=== PATIENT | male | born 1940 | race Caucasian/White ===

== ENCOUNTER → 2017-07-13 12:31 | Outpatient (CLI) | payer MEDICARE, SELFPAY ==
--- NOTE | 2017-07-13 12:35 | CDU_ITS ---
Reason For Study: carotid stenosis Rt. Velocities/BP Lt. Velocities/BP Prox CCA 59.2/14.1 cm/sec. Prox CCA 93.5/16.5 cm/sec. Mid CCA 34.6/9.82 cm/sec. Mid CCA 56.9/11.1 cm/sec. Dist CCA 45.2/11.8 cm/sec. Dist CCA 48.7/9.38 cm/sec. Prox ICA 86.4/18.1 cm/sec. Prox ECA 225/19.6 cm/sec. Mid ICA 85.6/18.9 cm/sec. Lt. Vert. 43.6/12.6 cm/sec. Dist ICA 140/36.9 cm/sec. Rt. ICA/CCA = 4.0. Prox ECA 482/65.5 cm/sec. Rt. Vert. 73.1/17.3 cm/sec. Right Extracranial There is heterogeneous, irregular atherosclerotic plaque noted in the right common carotid artery. There is heterogeneous, irregular atherosclerotic plaque noted in the right internal carotid artery. There is heterogeneous, irregular atherosclerotic plaque noted in the right external carotid artery. Antegrade flow is noted in the right vertebral artery. Left Extracranial There is heterogeneous, irregular atherosclerotic plaque noted in the left common carotid artery. Left ICA appears to be occluded. There is heterogeneous, irregular atherosclerotic plaque noted in the left external carotid artery. Antegrade flow is noted in the left vertebral artery. Procedure Carotid Duplex [id number]. The exam was diagnostic. Exam performed in department. Interpretation Summary Mild (<50%) stenosis right extracranial internal carotid. Left internal carotid occlussion. Flow within the vertebral arteries is antegrade bilaterally. Ordering Physician: Enrrique Caban Performed By: Betito Edwards, RVT
== END ==
PROVIDERS: Family Provider Family Medicine; PCP Family Medicine; Visit Provider Surgery Vascular Surgery
DX: I65.23 Occlusion and stenosis of bilateral carotid arteries (principal); I10 Essential (primary) hypertension; E78.00 Pure hypercholesterolemia, unspecified
CPT/HCPCS: 93880

== ENCOUNTER → 2018-10-27 13:07 | Outpatient (CLI) | payer MEDICARE, SELFPAY ==
--- NOTE | 2018-10-27 13:11 | CT_ITS ---
We are attempting to reach an attending provider to discuss findings. An addendum with communication details will be sent when the communication is complete. STUDY: CTA NECK WITH CONTRAST REASON FOR EXAM: Male, 77 years old. STENOSIS. Previous lt carotid endarterectomy. RADIATION DOSAGE (If Supplied By Facility): CTDIvol = ( 22.95 ) mGy, DLP = ( 612.06 ) mGycm TECHNIQUE: CT angiography with multi-detector data acquisition was performed from the aortic arch to the skull base following intravenous administration of 100ml IV Isovue 370. MIP images were reconstructed from the axial data set. Post-processing of the angiographic images was performed, with multiplanar reformation and 3D reconstruction. Individualized dose optimization techniques were used for this CT. COMPARISON: Ultrasound dated July 13, 2017 FINDINGS: AORTIC ARCH: There is atherosclerotic plaque of the visualized aortic arch. RIGHT CAROTID ARTERIES: There is atherosclerotic plaque formation of the common carotid artery, but without a hemodynamically significant stenosis. There is moderate atherosclerotic plaque formation with mild narrowing of the right carotid bulb. There is mild atherosclerotic plaque formation of the origin of the right internal carotid artery with less than 50% cross sectional diameter stenosis. There is atherosclerotic tortuous elongation of the cervical portion of the right internal carotid artery. Normal origin of the right external carotid artery (ECA). LEFT CAROTID ARTERIES: Normal left common carotid artery (CCA). There are surgical clips at the carotid bulb There is complete occlusion of the origin of the left internal carotid artery without demonstrated arterial flow. There is redemonstration of small difficult left internal carotid artery at the petrous segment, likely due to external carotid artery collateralization. Normal origin of the left external carotid artery (ECA). VERTEBRAL ARTERIES: Normal bilateral vertebral arteries. CT/CTA Neck W/WO Contrast IMPRESSION: Occlusion of the left ICA. Less than 50% stenosis of the right ICA. Electronically Signed: Rowena Son MD at 11:46 EDT Tel , Service support ,
[2018-10-27 13:26] LABS: CREATININE FINGERSTICK 1.1 mg/dL (0.70-1.30); EGFR FINGERSTICK > 60.0000 mL/min (>60)
== END ==
PROVIDERS: Family Provider Family Medicine; PCP Family Medicine; Referring Provider Surgery Vascular Surgery; Visit Provider Surgery Vascular Surgery
DX: I65.23 Occlusion and stenosis of bilateral carotid arteries (principal)
CPT/HCPCS: 70498; Q9967